=== PATIENT | male | born 2000 | race Hispanic/Latino ===

== ENCOUNTER 2023-08-20 16:38 | Emergency (ER) | payer OTHER ==
[~2023-08-20] VITALS: Ht 177.8 cm; Wt 105.4 kg
[2023-08-20 18:32] VITALS: BP 154/84; TEMP 98.2; O2SAT 98
[2023-08-20] MEDS ORDERED: ONDA-83 PO (19:41)
== END 2023-08-20 19:55 | disposition home or self-care (01) ==
LOC: M ED 16:38
DX: B34.9 Viral infection, unspecified (principal); Z79.83 Long term (current) use of bisphosphonates

== ENCOUNTER 2024-01-05 11:53 | Emergency (ER) | payer OTHER ==
[~2024-01-05] VITALS: Ht 177.8 cm; Wt 102.4 kg
[~2024-01-05 11:53] MED LIST: ONDA-83 PO
[2024-01-05 11:57] VITALS: TEMP 99.7
[2024-01-05 13:15] LABS: BASO # 0.1 10^3/uL (0.0-0.2); BASO % 1.1 % (0.0-1.0); EOS # 0.3 10^3/uL (0.0-0.5); HEMATOCRIT 44.9 % (42.0-52.0); HEMOGLOBIN 15.5 g/dl (13.5-17.5); LYMPH # 2.2 10^3/uL (1.5-5.0); LYMPH % 38.6 % (24.0-44.0); MEAN CORPUSCULAR HEMOGLOBIN 29.4 pg (27.0-33.0); MEAN CORPUSCULAR HGB CONC 34.5 g/dl (32.0-36.5); MONO # 0.6 10^3/uL (0.0-0.8); MONO % 11.1 % (2.0-8.0); NEUTROPHILS # 2.5 10^3/uL (1.5-8.5); PLATELET COUNT, AUTOMATED 266 10^3/uL (150-450); RED BLOOD COUNT 5.28 10^6/uL (4.30-6.10); WHITE BLOOD COUNT 5.6 10^3/uL (4.0-10.0)
[2024-01-05 13:37] LABS: LIPASE 34 U/L (12-53)
[2024-01-05 13:39] LABS: ALKALINE PHOSPHATASE 123 U/L (46-116); ALT/SGPT 34 U/L (7.0-40); AST/SGOT 17 U/L (<34); BILIRUBIN,DIRECT 0.1 MG/DL (<0.4); BILIRUBIN,TOTAL 0.5 MG/DL (0.3-1.2); BLOOD UREA NITROGEN 11 MG/DL (9-23); CALCIUM LEVEL 10.1 MG/DL (8.5-10.1); CARBON DIOXIDE LEVEL 25 MMOL/L (20-31); CHLORIDE LEVEL 109 MMOL/L (98-107); CK-MB VALUE MASS < 1.0 NG/ML (<3.6); CREATININE FOR GFR 0.75 MG/DL (0.70-1.30); GLOMERULAR FILTRATION RATE > 60.0 (>60); GLUCOSE, FASTING 98 MG/DL (60-100); POTASSIUM SERUM 4.1 MMOL/L (3.5-5.1); SODIUM LEVEL 139 MMOL/L (136-145); TOTAL PROTEIN 7.2 G/DL (5.7-8.2)
[2024-01-05 13:43] LABS: THYROID STIMULATING HORMONE 0.641 uIU/ML (0.55-4.78)
[2024-01-05 13:44] LABS: CPK CREATINE PHOSPHOKINASE 119 U/L (46-171); MB/CK RELATIVE INDEX 0.84 (< OR =4)
[2024-01-05 14:44] VITALS: BP 135/72; O2SAT 99
== END 2024-01-05 14:45 | disposition home or self-care (01) ==
LOC: M ED 11:53
DX: R07.89 Other chest pain (principal); R06.02 Shortness of breath; Z79.83 Long term (current) use of bisphosphonates

== ENCOUNTER 2024-04-23 11:51 | Inpatient (IN) | payer OTHER ==
[~2024-04-23] VITALS: Ht 177.8 cm; Wt 100.1 kg
[2024-04-23] MEDS: NICOTINE 14 MG/24 HR TRANSDERMAL TD SCH (09:00)
[2024-04-23 12:28] LABS: HEMATOCRIT 44.3 % (42.0-52.0); MEAN CORPUSCULAR HEMOGLOBIN 29.1 pg (27.0-33.0); MEAN CORPUSCULAR HGB CONC 33.9 g/dl (32.0-36.5); MEAN CORPUSCULAR VOLUME 85.9 fl (80.0-96.0); PLATELET COUNT, AUTOMATED 280 10^3/uL (150-450); RED BLOOD COUNT 5.16 10^6/uL (4.30-6.10); WHITE BLOOD COUNT 5.7 10^3/uL (4.0-10.0)
[2024-04-23 12:45] LABS: BARBITURATES URINE NEGATIVE (NEGATIVE); COCAINE METABOLITE URINE NEGATIVE (NEGATIVE); METHADONE URINE NEGATIVE (NEGATIVE)
[2024-04-23 12:46] LABS: AMPHETAMINES LEVEL URINE NEGATIVE (NEGATIVE); BENZODIAZEPINES URINE NEGATIVE (NEGATIVE); CANNABINOIDS URINE NEGATIVE (NEGATIVE); OPIATES URINE NEGATIVE (NEGATIVE); PHENCYCLIDINE URINE NEGATIVE (NEGATIVE)
[2024-04-23 12:50] LABS: ALBUMIN 4.1 G/DL (3.2-5.2); ALKALINE PHOSPHATASE 102 U/L (40-129); ALT/SGPT 27 U/L (7.0-40); AST/SGOT 15 U/L (<34); BILIRUBIN,DIRECT 0.2 MG/DL (<0.4); BILIRUBIN,TOTAL 0.7 MG/DL (0.3-1.2); BLOOD UREA NITROGEN 13 MG/DL (9-23); CALCIUM LEVEL 9.7 MG/DL (8.5-10.1); CARBON DIOXIDE LEVEL 24 MMOL/L (20-31); CHLORIDE LEVEL 106 MMOL/L (98-107); CREATININE FOR GFR 0.72 MG/DL (0.70-1.30); GLOMERULAR FILTRATION RATE > 60.0 (>60); GLUCOSE, FASTING 100 MG/DL (60-100); POTASSIUM SERUM 4.2 MMOL/L (3.5-5.1); SALICYLATE LEVEL < 3.0 MG/DL (<30); SODIUM LEVEL 142 MMOL/L (136-145); THYROID STIMULATING HORMONE 0.902 uIU/ML (0.55-4.78); TOTAL PROTEIN 7.3 G/DL (5.7-8.2)
[2024-04-23] MEDS ORDERED: HOME MED LIST COMPLETE! XX SCH (14:20)
[2024-04-23] MEDS ORDERED: OLANZapine 5 MG TAB PO PRN (14:55)
[2024-04-23] MEDS ORDERED: MOM 30ML SUSPENSION UDC PO PRN (14:55)
[2024-04-23] MEDS ORDERED: diphenhydrAMINE 25MG CAP PO PRN (14:55)
[2024-04-23] MEDS ORDERED: ACETAMINOPHEN 325 MG TAB PO PRN (14:55)
[2024-04-23] MEDS ORDERED: LORazepam 1 MG TAB PO PRN (14:55)
[2024-04-23] MEDS ORDERED: MAALOX 30 ML SUSP *UDC PO PRN (14:55)
[2024-04-23 15:40] VITALS: BP 141/74; TEMP 98.6; O2SAT 97
[2024-04-24 06:31] VITALS: BP 132/62; TEMP 97.6; O2SAT 98
[2024-04-24] MEDS ORDERED: PREPARATION H OINTMENT (HEMORRHOID) PR PRN (10:45)
[2024-04-24] MEDS ORDERED: SENNA 8.6 MG TAB (SENOKOT) PO PRN (10:45)
[2024-04-24] MEDS ORDERED: MIRALAX *UNIT DOSE* 17GM PACKET PO PRN (10:45)
[2024-04-24] MEDS: CARIPRAZINE 1.5MG CAPSULE (VRAYLAR) PO SCH (21:18)
[2024-04-24] MEDS: traZODone 50 MG TAB PO PRN (21:18)
[2024-04-25 06:35] VITALS: BP 134/63; TEMP 97.5; O2SAT 100
[2024-04-25 09:49] VITALS: BP 141/80; O2SAT 99
[2024-04-25 15:47] VITALS: BP 135/78; TEMP 98.2; O2SAT 98
[2024-04-26 06:54] VITALS: BP 113/57; TEMP 97.5; O2SAT 95
[2024-04-26 15:03] VITALS: BP 136/70; TEMP 97.8; O2SAT 97
[2024-04-27 06:50] VITALS: BP 131/67; TEMP 97.4; O2SAT 97
[2024-04-27 17:13] VITALS: BP 127/71; TEMP 97.4; O2SAT 98
[2024-04-27] MEDS: traZODone 25MG PER 1/2 TABLET PO PRN (20:06)
[2024-04-28 06:44] VITALS: BP 133/69; TEMP 97.6; O2SAT 98
[2024-04-28] MEDS ORDERED: SENO8.6T5 PO (08:17)
[2024-04-28] MEDS ORDERED: PREPOI PR (08:17)
[2024-04-28] MEDS ORDERED: VRAY1.5C PO ×2 (08:17→12:21)
[2024-04-28] MEDS ORDERED: TRAZ-252 PO ×2 (08:17→12:21)
[2024-04-28] MEDS ORDERED: MIRA33506 PO (08:17)
== END 2024-04-28 11:12 | disposition home or self-care (01) | DRG 885 ==
LOC: EDBD 11:51 → M ED 11:51 → M ED INP 14:55 → M PSY 15:30
PROVIDERS: ADMIT Internal Medicine; ATTEND Internal Medicine
DX: F31.81 Bipolar II disorder (principal); R45.851 Suicidal ideations; F43.10 Post-traumatic stress disorder, unspecified; Z59.89 Other problems related to housing and economic circumstances; F10.10 Alcohol abuse, uncomplicated; Z91.82 Personal history of military deployment; G47.00 Insomnia, unspecified; I10 Essential (primary) hypertension; K64.8 Other hemorrhoids

== ENCOUNTER → 2024-12-15 | Outpatient (REF) ==
[~2024-12-15] MED LIST changes: +MIRA33506 PO; +PREPOI PR; +SENN-225 PO; +TRAZ-252 PO; +VRAY1.5C PO
== END ==
LOC: M PLAIMG 08:38
PROVIDERS: ATTEND Internal Medicine
DX: Z01.89 Encounter for other specified special examinations (principal)